=== PATIENT | male | born 1945 | race Caucasian/White ===

== ENCOUNTER → 2016-05-27 | Outpatient (CLI) | payer OTHER, MEDICARE ==
[2016-05-27 09:51] LABS: BASO % 0.4 % (0.0-1.0); EOS # 0.3 K/mm3 (0.0-0.50); EOS % 6.4 % (0.0-3.0); LARGE UNSTAINED CELL # 0.1 K/mm3 (0.0-0.4); LARGE UNSTAINED CELL % 1.7 % (0.0-4.0); LYMPH # 0.9 K/mm3 (1.5-4.5); MEAN CORPUSCULAR HEMOGLOBIN 32.5 pg (27.0-33.0); MEAN CORPUSCULAR HGB CONC 33.6 g/dl (32.0-36.5); MEAN CORPUSCULAR VOLUME 96.9 fl (80.0-96.0); MONO # 0.3 K/mm3 (0.0-0.8); MONO % 4.9 % (0.0-5.0); NEUTROPHILS # 3.8 K/mm3 (1.8-7.7); NEUTROPHILS % 70.6 % (36.0-66.0); PLATELET COUNT, AUTOMATED 162 k/mm3 (150-450); RED CELL DISTRIBUTION WIDTH 11.8 % (11.5-14.5); WHITE BLOOD COUNT 5.3 K/mm3 (4.0-10.0)
[2016-05-27 12:13] LABS: ALBUMIN 3.9 GM/DL (3.2-5.2); ALKALINE PHOSPHATASE 93 U/L (45-117); ALT/SGPT 22 U/L (12-78); ANION GAP 3 MEQ/L (8-16); AST/SGOT 18 U/L (15-37); BILIRUBIN,TOTAL 0.7 MG/DL (0.2-1.0); BLOOD UREA NITROGEN 20 MG/DL (7-18); CALCIUM LEVEL 8.9 MG/DL (8.8-10.2); CARBON DIOXIDE LEVEL 33 MEQ/L (21-32); CHLORIDE LEVEL 104 MEQ/L (98-107); CHOLESTEROL LEVEL 172 MG/DL (<200); CREATININE FOR GFR 1.06 MG/DL (0.70-1.30); GLOMERULAR FILTRATION RATE > 60.0 (>49); GLUCOSE, FASTING 126 MG/DL (80-110); POTASSIUM SERUM 4.7 MEQ/L (3.5-5.1); SODIUM LEVEL 140 MEQ/L (136-145); TOTAL PROTEIN 6.9 GM/DL (6.4-8.2); TRIGLYCERIDES LEVEL 81 MG/DL (<150)
== END ==
LOC: M WUC 08:06
PROVIDERS: ATTEND Family Medicine
DX: E11.9 Type 2 diabetes mellitus without complications (principal); N40.0 Benign prostatic hyperplasia without lower urinary tract symptoms
CPT/HCPCS: 36415; 80053; 80061; 82043; 85025; G0103

== ENCOUNTER → 2016-06-02 | Outpatient (CLI) | payer OTHER, MEDICARE | LOC: M WUC 17:13 | PROVIDERS: ATTEND Family Medicine | DX: E11.9 Type 2 diabetes mellitus without complications (principal) ==

== ENCOUNTER 2016-12-04 14:14 | Emergency (ER) | payer OTHER, MEDICARE ==
[~2016-12-04] VITALS: Ht 177.8 cm; Wt 75.9 kg
[2016-12-04] MEDS ORDERED: GABA-283 PO (14:39)
[2016-12-04] MEDS ORDERED: METF500T13 PO (14:39)
[2016-12-04] MEDS ORDERED: ATOR80TA59 PO (14:39)
[2016-12-04] MEDS ORDERED: FINA5TAB2 PO (14:39)
[2016-12-04] MEDS ORDERED: GLYB5TA PO (14:39)
[2016-12-04] MEDS ORDERED: ASPI81TA85 PO (14:39)
[2016-12-04] MEDS ORDERED: FLOM5CAP PO (14:39)
[2016-12-04] MEDS ORDERED: LISI-542 PO (14:39)
[2016-12-04 15:00] LABS: BASO % 0.5 % (0.0-1.0); EOS # 0.3 10^3/uL (0.0-0.50); EOS % 3.7 % (0.0-3.0); IMMATURE GRANULOCYTE % 0.3 % (0-0); LYMPH # 1.1 10^3/uL (1.5-4.5); LYMPH % 15.4 % (24.0-44.0); MEAN CORPUSCULAR HEMOGLOBIN 32.8 pg (27.0-33.0); MEAN CORPUSCULAR HGB CONC 34.4 g/dl (32.0-36.5); MEAN CORPUSCULAR VOLUME 95.3 fl (80.0-96.0); MONO # 0.4 10^3/uL (0.0-0.8); MONO % 5.6 % (0.0-5.0); NEUTROPHILS # 5.4 10^3/uL (1.8-7.7); NEUTROPHILS % 74.5 % (36.0-66.0); PLATELET COUNT, AUTOMATED 169 10^3/uL (150-450); RED CELL DISTRIBUTION WIDTH 11.8 % (11.5-14.5); WHITE BLOOD COUNT 7.3 10^3/uL (4.0-10.0)
[2016-12-04 15:27] LABS: ANION GAP 6 MEQ/L (8-16); BLOOD UREA NITROGEN 19 MG/DL (7-18); CALCIUM LEVEL 9.2 MG/DL (8.8-10.2); CARBON DIOXIDE LEVEL 30 MEQ/L (21-32); CHLORIDE LEVEL 105 MEQ/L (98-107); CREATININE FOR GFR 1.33 MG/DL (0.70-1.30); GLOMERULAR FILTRATION RATE 56.8 (>49); GLUCOSE, FASTING 121 MG/DL (80-110); POTASSIUM SERUM 4.4 MEQ/L (3.5-5.1); SODIUM LEVEL 141 MEQ/L (136-145)
--- NOTE | 2016-12-04 15:32 | REP ---
PA and lateral chest: Comparison is 07/31/2010. The lung [place] are clear. The cardiac size is normal The [place], mediastinum, and bony thorax are unremarkable. Impression: Negative PA and lateral chest. There is no interval change. Signed by Robert Klein MD 12/04/2016 03:23 P
[2016-12-04] MEDS ORDERED: ASPIRIN 81 MG CHEW TABLET As Ordered ONE (15:49)
[2016-12-04] MEDS ORDERED: ASPIRIN 81 MG CHEW TABLET PO ONE (16:00)
[2016-12-04] MEDS ORDERED: ASPIRIN 325 MG TAB PO ONE (16:00)
[2016-12-04] MEDS ORDERED: ISOVUE-370 76% 100ML VIAL (Q9967) As Ordered ONE (16:14)
--- NOTE | 2016-12-04 17:04 | REP ---
CT of the chest with IV contrast, CT pulmonary angiography: There are no emboli in the pulmonary trunk or central pulmonary arteries. There are no emboli in the pulmonary artery lobe or segment branches. There are no infiltrates or effusions. No masses. There is no mediastinal or hilar adenopathy. No axillary adenopathy. The thoracic aorta is. Cardiac size is normal. There is no pericardial effusion. The visualized upper abdominal contents are unremarkable. Impression: There are no pulmonary emboli. Otherwise, negative CT study of the chest. Signed by Robert Klein MD 12/04/2016 04:55 P
[2016-12-04 19:16] VITALS: BP 160/88
--- NOTE | 2016-12-05 08:07 | ECGEPIP ---
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
--- NOTE | 2016-12-05 08:10 | ECGEPIP ---
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
== END 2016-12-04 19:27 | disposition home or self-care (01) ==
LOC: M ED 14:14
DX: R06.02 Shortness of breath (principal); I20.9 Angina pectoris, unspecified; R94.31 Abnormal electrocardiogram [ECG] [EKG]; E11.9 Type 2 diabetes mellitus without complications; I10 Essential (primary) hypertension; E78.5 Hyperlipidemia, unspecified; N40.0 Benign prostatic hyperplasia without lower urinary tract symptoms; Z83.49 Family history of other endocrine, nutritional and metabolic diseases; Z79.82 Long term (current) use of aspirin; Z79.84 Long term (current) use of oral hypoglycemic drugs; Z79.899 Other long term (current) drug therapy
CPT/HCPCS: 36415; 71020; 71275; 80048; 82550; 82553; 83880; 85025; 93005; 93041; 94760; 99285; Q9967

== ENCOUNTER → 2016-12-06 | Outpatient (CLI) | payer OTHER, MEDICARE ==
[~2016-12-06] MED LIST: ASPI81TA85 PO; ATOR80TA59 PO; FINA5TAB2 PO; FLOM5CAP PO; GABA-283 PO; GLYB5TA PO; LISI-542 PO; METF500T13 PO
== END ==
LOC: M WUC 13:23
PROVIDERS: ATTEND Family Medicine
DX: E11.9 Type 2 diabetes mellitus without complications (principal); E55.9 Vitamin D deficiency, unspecified; F39 Unspecified mood [affective] disorder

== ENCOUNTER → 2017-05-09 | Outpatient (CLI) | payer OTHER, MEDICARE ==
[2017-05-09 13:37] LABS: BASO % 0.5 % (0.0-1.0); EOS # 0.2 10^3/uL (0.0-0.50); HEMATOCRIT 41.6 % (42.0-52.0); HEMOGLOBIN 14.2 g/dl (14.0-18.0); IMMATURE GRANULOCYTE % 0.4 % (0-3.0); LYMPH % 17.3 % (24.0-44.0); MEAN CORPUSCULAR HEMOGLOBIN 32.9 pg (27.0-33.0); MEAN CORPUSCULAR HGB CONC 34.1 g/dl (32.0-36.5); MEAN CORPUSCULAR VOLUME 96.5 fl (80.0-96.0); MONO # 0.4 10^3/uL (0.0-0.8); MONO % 6.6 % (0.0-5.0); NEUTROPHILS # 3.9 10^3/uL (1.8-7.7); NEUTROPHILS % 71.2 % (36.0-66.0); PLATELET COUNT, AUTOMATED 171 10^3/uL (150-450); RED BLOOD COUNT 4.31 10^6/uL (4.30-6.10); RED CELL DISTRIBUTION WIDTH 11.8 % (11.5-14.5); WHITE BLOOD COUNT 5.5 10^3/uL (4.0-10.0)
[2017-05-09 14:03] LABS: ALBUMIN 3.9 GM/DL (3.2-5.2); ALBUMIN/GLOBULIN RATIO 1.26 (1.00-1.93); ALKALINE PHOSPHATASE 89 U/L (45-117); ALT/SGPT 22 U/L (12-78); ANION GAP 6 MEQ/L (8-16); AST/SGOT 20 U/L (7-37); BILIRUBIN,TOTAL 0.8 MG/DL (0.2-1.0); BLOOD UREA NITROGEN 20 MG/DL (7-18); CARBON DIOXIDE LEVEL 30 MEQ/L (21-32); CHLORIDE LEVEL 104 MEQ/L (98-107); CHOLESTEROL LEVEL 188 MG/DL (<200); CHOLESTEROL RISK RATIO 3.836 (<5); CREATININE FOR GFR 1.13 MG/DL (0.70-1.30); GLOMERULAR FILTRATION RATE > 60.0 (>42); GLUCOSE, FASTING 113 MG/DL (70-100); HDL CHOLESTEROL 49 MG/DL (>40); LDL CHOLESTEROL 126.4 MG/DL (<100); NON-HDL-C 139 MG/DL; POTASSIUM SERUM 4.4 MEQ/L (3.5-5.1); SODIUM LEVEL 140 MEQ/L (136-145); TRIGLYCERIDES LEVEL 63 MG/DL (<150)
[2017-05-09 14:11] LABS: CREATININE, URINE 81.5 MG/DL; MALB URINE SIEMENS 58.9 MG/L; MAU/CREAT RATIO 72.2 MCG/MG (0.0-30.0)
[2017-05-09 14:44] LABS: HEPATITIS C VIRUS ABY INDEX < 0.0 INDEX (<0.8)
== END ==
LOC: M WUC 09:21
DX: E11.9 Type 2 diabetes mellitus without complications (principal); Z11.59 Encounter for screening for other viral diseases
CPT/HCPCS: 80053

== ENCOUNTER → 2017-09-18 | Outpatient (CLI) | payer OTHER, MEDICARE | LOC: M WUC 16:04 | DX: S20.211A Contusion of right front wall of thorax, initial encounter (principal); W18.30XA Fall on same level, unspecified, initial encounter; Y92.009 Unspecified place in unspecified non-institutional (private) residence as the place of occurrence of the external cause ==

== ENCOUNTER → 2017-11-09 | Outpatient (CLI) | payer OTHER, MEDICARE ==
[2017-11-09 15:38] LABS: ESTIMATED AVERAGE GLUCOSE 157 MG/DL (60-110); HEMOGLOBIN A1c 7.1 %
== END ==
LOC: M WUC 09:27
DX: E11.69 Type 2 diabetes mellitus with other specified complication (principal)
CPT/HCPCS: 83036

== ENCOUNTER → 2017-12-19 | Outpatient (REF) | payer OTHER, MEDICARE ==
[2017-12-19 15:04] LABS: BASO % 0.5 % (0.0-1.0); EOS # 0.2 10^3/uL (0.0-0.50); EOS % 3.7 % (0.0-3.0); HEMATOCRIT 44.3 % (42.0-52.0); IMMATURE GRANULOCYTE % 0.3 % (0-3.0); LYMPH # 0.9 10^3/uL (1.5-4.5); LYMPH % 14.4 % (24.0-44.0); MEAN CORPUSCULAR HEMOGLOBIN 33.2 pg (27.0-33.0); MEAN CORPUSCULAR HGB CONC 33.9 g/dl (32.0-36.5); MONO # 0.3 10^3/uL (0.0-0.8); MONO % 4.9 % (0.0-5.0); NEUTROPHILS # 4.5 10^3/uL (1.8-7.7); NEUTROPHILS % 76.2 % (36.0-66.0); PLATELET COUNT, AUTOMATED 183 10^3/uL (150-450); RED BLOOD COUNT 4.52 10^6/uL (4.30-6.10); RED CELL DISTRIBUTION WIDTH 11.9 % (11.5-14.5); WHITE BLOOD COUNT 5.9 10^3/uL (4.0-10.0)
[2017-12-19 15:28] LABS: ALBUMIN 4.3 GM/DL (3.2-5.2); ALBUMIN/GLOBULIN RATIO 1.34 (1.00-1.93); ALKALINE PHOSPHATASE 100 U/L (45-117); ALT/SGPT 28 U/L (12-78); ANION GAP 5 MEQ/L (8-16); AST/SGOT 23 U/L (7-37); BILIRUBIN,TOTAL 0.6 MG/DL (0.2-1.0); BLOOD UREA NITROGEN 23 MG/DL (7-18); CALCIUM LEVEL 9.7 MG/DL (8.8-10.2); CARBON DIOXIDE LEVEL 30 MEQ/L (21-32); CHLORIDE LEVEL 102 MEQ/L (98-107); CREATININE FOR GFR 1.15 MG/DL (0.70-1.30); FREE T4 1.04 NG/DL (0.76-1.46); GLOMERULAR FILTRATION RATE > 60.0 (>42); GLUCOSE, FASTING 185 MG/DL (70-100); POTASSIUM SERUM 4.8 MEQ/L (3.5-5.1); RHEUMATOID FACTOR QUANT < 10.0 IU/ML (<15.0); SODIUM LEVEL 137 MEQ/L (136-145); THYROID STIMULATING HORMONE 0.922 uIU/ML (0.358-3.740); TOTAL PROTEIN 7.5 GM/DL (6.4-8.2)
[2017-12-19 15:30] LABS: FOLATE > 24.0 NG/ML
[2017-12-19 15:39] LABS: ERYTHROCYTE SEDIMENTATION RATE 5 mm/hr (0-20)
[2017-12-22 08:06] LABS: ANTI DOUBLE STRAND-DNA AB 1 IU/mL (0-9); ANTINUCLEAR ANTIBODIES DIRECT Positive (Negative); SJOGREN'S ANTI SS-A <0.2 AI (0.0-0.9); SJOGREN'S ANTI SS-B <0.2 AI (0.0-0.9); SMITH ANTIBODIES <0.2 AI (0.0-0.9); VITAMIN B1 LEVEL WHOLE BLOOD 175.9 nmol/L (66.5-200.0); VITAMIN B6,PYRIDOXAL PHOSPHATE 16.7 ug/L (5.3-46.7); VITAMIN E(ALPHA TOCOPHEROL) 11.2 mg/L (9.0-29.0); VITAMIN E(GAMMA TOCOPHEROL) 0.8 mg/L (0.5-4.9)
== END ==
LOC: M LABNEURO 10:22
DX: E07.9 Disorder of thyroid, unspecified (principal); F03.90 Unspecified dementia, unspecified severity, without behavioral disturbance, psychotic disturbance, mood disturbance, and anxiety

== ENCOUNTER → 2018-01-04 | Outpatient (CLI) | payer OTHER, MEDICARE ==
[2018-01-04 13:45] LABS: ESTIMATED AVERAGE GLUCOSE 154 MG/DL (60-110)
[2018-01-04 13:55] LABS: ALBUMIN 3.8 GM/DL (3.2-5.2); ALBUMIN/GLOBULIN RATIO 1.23 (1.00-1.93); ALKALINE PHOSPHATASE 92 U/L (45-117); ALT/SGPT 25 U/L (12-78); ANION GAP 5 MEQ/L (8-16); AST/SGOT 19 U/L (7-37); BILIRUBIN,TOTAL 0.7 MG/DL (0.2-1.0); BLOOD UREA NITROGEN 19 MG/DL (7-18); CARBON DIOXIDE LEVEL 30 MEQ/L (21-32); CHLORIDE LEVEL 104 MEQ/L (98-107); CREATININE FOR GFR 1.11 MG/DL (0.70-1.30); GLOMERULAR FILTRATION RATE > 60.0 (>42); GLUCOSE, FASTING 119 MG/DL (70-100); POTASSIUM SERUM 4.7 MEQ/L (3.5-5.1); SODIUM LEVEL 139 MEQ/L (136-145); TOTAL PROTEIN 6.9 GM/DL (6.4-8.2)
== END ==
LOC: M WUC 10:43
DX: E11.69 Type 2 diabetes mellitus with other specified complication (principal)
CPT/HCPCS: 80053

== ENCOUNTER → 2018-03-03 | Outpatient (CLI) | payer OTHER, MEDICARE ==
[~2018-03-03] MED LIST changes: +FLOM0.4C39 PO; -FLOM5CAP PO; -GABA-283 PO; +GABA-845 PO
[2018-03-03 14:59] LABS: HEMOGLOBIN A1c 7.4 %
== END ==
LOC: M WUC 08:56
PROVIDERS: ATTEND Family Medicine
DX: E11.69 Type 2 diabetes mellitus with other specified complication (principal)

== ENCOUNTER → 2018-04-03 | Outpatient (CLI) | payer OTHER, MEDICARE ==
--- NOTE | 2018-04-03 18:38 | REP ---
KUB, ONE VIEW: HISTORY: Back pain. A small amount of air is present in the intestine. There are no air fluid levels or dilated loops of intestine. There is no pneumoperitoneum. There is no definite nephrocalcinosis. Degenerative change is present in the lumbar spine and hips. IMPRESSION:Nonspecific bowel gas pattern. Electronically Signed by Ruiz Palomino MD 04/03/2018 06:57 P
[2018-04-03 20:03] LABS: APPEARANCE, URINE CLEAR (CLEAR); BACTERIA, URINE AUTO NEGATIVE (NEGATIVE); BILIRUBIN, URINE AUTO NEGATIVE (NEGATIVE); BLOOD, URINE BLOOD NEGATIVE (NEGATIVE); COLOR, URINE YELLOW (YELLOW); GLUCOSE, URINE (UA) AUTO 2+ mg/dL (NEGATIVE); KETONE, URINE AUTO NEGATIVE (NEGATIVE); LEUKOCYTE ESTERASE, URINE AUTO NEGATIVE (NEGATIVE); NITRITE, URINE AUTO NEGATIVE (NEGATIVE); PROTEIN, URINE AUTO 1+ mg/dL (NEGATIVE); RBC, URINE AUTO 0 /HPF (0-3); SPECIFIC GRAVITY URINE AUTO 1.016 (1.002-1.035); SQUAMOUS EPITHELIAL CELL UR AU 0 /HPF (0-6); UROBILINOGEN, URINE AUTO 0.2 mg/dL (0.0-2.0); WBC, URINE AUTO 1 /HPF (0-3)
== END ==
LOC: M WUC 17:09
PROVIDERS: ATTEND Physician Assistant
DX: M54.5 Low back pain (principal)

== ENCOUNTER → 2018-04-04 | Outpatient (CLI) | payer MEDICARE, OTHER ==
[2018-04-04 10:46] LABS: BASO % 0.5 % (0.0-1.0); EOS # 0.3 10^3/uL (0.0-0.50); EOS % 4.6 % (0.0-3.0); HEMATOCRIT 46.3 % (42.0-52.0); HEMOGLOBIN 15.6 g/dl (13.5-17.5); LYMPH # 0.9 10^3/uL (1.5-4.5); LYMPH % 16.4 % (24.0-44.0); MEAN CORPUSCULAR HEMOGLOBIN 32.8 pg (27.0-33.0); MEAN CORPUSCULAR HGB CONC 33.7 g/dl (32.0-36.5); MEAN CORPUSCULAR VOLUME 97.3 fl (80.0-96.0); MONO # 0.3 10^3/uL (0.0-0.8); MONO % 5.3 % (0.0-5.0); NEUTROPHILS % 72.8 % (36.0-66.0); PLATELET COUNT, AUTOMATED 198 10^3/uL (150-450); RED BLOOD COUNT 4.76 10^6/uL (4.30-6.10); WHITE BLOOD COUNT 5.5 10^3/uL (4.0-10.0)
[2018-04-04 11:11] LABS: BLOOD UREA NITROGEN 16 MG/DL (7-18); CALCIUM LEVEL 9.2 MG/DL (8.8-10.2); CARBON DIOXIDE LEVEL 30 MEQ/L (21-32); CHLORIDE LEVEL 103 MEQ/L (98-107); CREATININE FOR GFR 1.08 MG/DL (0.70-1.30); GLOMERULAR FILTRATION RATE > 60.0 (>42); GLUCOSE, FASTING 134 MG/DL (70-100); POTASSIUM SERUM 4.6 MEQ/L (3.5-5.1); SODIUM LEVEL 139 MEQ/L (136-145)
--- NOTE | 2018-04-04 11:18 | REP ---
CT ABDOMEN AND PELVIS WITHOUT CONTRAST: 04/04/2018. Clinical history: Low back pain. Comparison: KUB 04/03/2018. Findings: Noncontrast protocol was followed. CT abdomen: Lung bases are clear. Heart is not enlarged. There is no pericardial thickening or effusion and no hiatal hernia. Liver and spleen are not enlarged and show no focal lesion. Gallbladder shows no calcified stone or mass. Pancreas is without mass, ductal dilatation, calcification, fluid collection or adjacent adenopathy. Stomach is collapsed. Colon shows stool and gas scattered without signs of colitis or diverticulitis. Small bowel loops grossly unremarkable. The aorta has atherosclerotic calcifications without aneurysm. Adrenal glands are symmetric and normal. There are subtle hyperdensities in several pyramids in the right kidney without well formed stones. This may be early calcification in pyramids. Similar finding in the inferior pole on the left and the upper pole. There is one 1-2 mm stone in an upper pole pyramid on the left side. I see no hydronephrosis, cyst or solid mass. No perinephric fluid collection. The right and left ureters show normal course to the bladder without dilatation or stone. Bone show degenerative disc changes throughout the lumbar spine with superior endplate depression at L2 with endplate degenerative changes, likely chronic. The posterior rib articulations are grossly intact. CT pelvis: The sacrum, pelvis, hips, SI joints and pubic symphysis show some degenerative change without destructive lesion or fracture. There is spondylolysis at L5 with a couple of millimeters of spondylolisthesis of L5 on S1. Bladder is only partially filled. It has some wall thickening. An enlarged prostate indents its base. There is no distal ureteral dilatation or stone in the ureters or bladder. Distal left colon and sigmoid with some scattered diverticula with no signs of diverticulitis or colitis. The cecum was intact. There is a normal appendix seen. Small bowel loops in the pelvis are unremarkable. No ventral or inguinal hernia nor pathologic sized inguinal adenopathy. Impression: 1. No hydronephrosis, hydroureter, or mass involving the kidneys or ureters. 2. Slight hyperdensity in multiple pyramids bilaterally may reflect hyperdense urine in pyramids or early stone formation. There is only one definite stone in the 1-2 mm range in an upper pole pyramid on the left. 3. Superior endplate depression of L2 with sclerosis, findings suggest a possible chronic degenerative change. There are other lesser endplate degenerative changes in the lower thoracic spine. 4. 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 5. Enlarged prostate. No other significant finding in the abdomen or pelvis. Electronically Signed by Teo Quinones MD 04/04/2018 05:48 P
== END ==
LOC: M RAD 09:31
PROVIDERS: ATTEND Physician Assistant
DX: M54.5 Low back pain (principal)

== ENCOUNTER → 2018-04-06 | Outpatient (CLI) | payer MEDICARE, OTHER ==
[2018-04-06 12:49] LABS: BASO % 0.5 % (0.0-1.0); EOS # 0.3 10^3/uL (0.0-0.50); EOS % 4.6 % (0.0-3.0); HEMATOCRIT 42.1 % (42.0-52.0); HEMOGLOBIN 14.3 g/dl (13.5-17.5); LYMPH # 0.9 10^3/uL (1.5-4.5); LYMPH % 15.9 % (24.0-44.0); MEAN CORPUSCULAR HEMOGLOBIN 32.9 pg (27.0-33.0); MONO # 0.4 10^3/uL (0.0-0.8); MONO % 6.6 % (0.0-5.0); NEUTROPHILS % 71.9 % (36.0-66.0); PLATELET COUNT, AUTOMATED 187 10^3/uL (150-450); RED BLOOD COUNT 4.34 10^6/uL (4.30-6.10); WHITE BLOOD COUNT 5.6 10^3/uL (4.0-10.0)
[2018-04-06 12:52] LABS: ALBUMIN 3.8 GM/DL (3.2-5.2); ALT/SGPT 25 U/L (12-78); BILIRUBIN,TOTAL 0.8 MG/DL (0.2-1.0); BLOOD UREA NITROGEN 18 MG/DL (7-18); CALCIUM LEVEL 8.8 MG/DL (8.8-10.2); CARBON DIOXIDE LEVEL 29 MEQ/L (21-32); CHLORIDE LEVEL 103 MEQ/L (98-107); CHOLESTEROL LEVEL 188 MG/DL (<200); CHOLESTEROL RISK RATIO 4.476 (<5); CREATININE FOR GFR 1.16 MG/DL (0.70-1.30); GLOMERULAR FILTRATION RATE > 60.0 (>42); GLUCOSE, FASTING 130 MG/DL (70-100); HDL CHOLESTEROL 42 MG/DL (>40); LDL CHOLESTEROL 125 MG/DL (<100); NON-HDL-C 146 MG/DL; POTASSIUM SERUM 4.9 MEQ/L (3.5-5.1); SODIUM LEVEL 138 MEQ/L (136-145); TRIGLYCERIDES LEVEL 103 MG/DL (<150)
[2018-04-06 13:32] LABS: MAU/CREAT RATIO 135.1 MCG/MG (0.0-30.0)
[2018-04-06 13:43] LABS: HEMOGLOBIN A1c 7.6 %
== END ==
LOC: M WUC 09:58
PROVIDERS: ATTEND Family Medicine
DX: E11.69 Type 2 diabetes mellitus with other specified complication (principal)

== ENCOUNTER → 2018-07-02 | Outpatient (CLI) | payer MEDICARE, OTHER ==
--- NOTE | 2018-07-03 07:46 | REP ---
REASON: Chest contusion on the left. COMPARISON: Frontal view of the chest and right rib series of 09/18/2017. The accompanying frontal view of the chest is unchanged and within normal limits. There is no evidence of a right rib fracture. The right ribs are unchanged. There is a fracture involving the left anterior 9th of 10th rib. Other subtle fractures could be obscured. IMPRESSION: Left rib fractures as described above. Electronically Signed by Hansel Aguilar DO 07/03/2018 08:40 A
== END ==
LOC: M WUC 15:18
PROVIDERS: ATTEND Physician Assistant
DX: S22.41XA Multiple fractures of ribs, right side, initial encounter for closed fracture (principal); Y92.9 Unspecified place or not applicable; Y93.9 Activity, unspecified

== ENCOUNTER → 2018-07-05 | Outpatient (CLI) | payer MEDICARE, OTHER ==
[2018-07-05 12:03] LABS: BASO % 0.3 % (0.0-1.0); EOS # 0.1 10^3/uL (0.0-0.50); EOS % 0.8 % (0.0-3.0); HEMATOCRIT 41.8 % (42.0-52.0); HEMOGLOBIN 13.9 g/dl (13.5-17.5); LYMPH # 1.3 10^3/uL (1.5-4.5); LYMPH % 14.1 % (24.0-44.0); MEAN CORPUSCULAR HEMOGLOBIN 32.2 pg (27.0-33.0); MEAN CORPUSCULAR HGB CONC 33.3 g/dl (32.0-36.5); MEAN CORPUSCULAR VOLUME 96.8 fl (80.0-96.0); MONO # 0.7 10^3/uL (0.0-0.8); MONO % 7.4 % (0.0-5.0); PLATELET COUNT, AUTOMATED 196 10^3/uL (150-450); RED BLOOD COUNT 4.32 10^6/uL (4.30-6.10); WHITE BLOOD COUNT 9.1 10^3/uL (4.0-10.0)
[2018-07-05 12:27] LABS: ALBUMIN 3.8 GM/DL (3.2-5.2); BILIRUBIN,TOTAL 0.7 MG/DL (0.2-1.0); CHOLESTEROL RISK RATIO 2.32 (<5); CREATININE FOR GFR 1.28 MG/DL (0.70-1.30); POTASSIUM SERUM 4.7 MEQ/L (3.5-5.1); TOTAL PROTEIN 7.5 GM/DL (6.4-8.2)
[2018-07-05 13:30] LABS: MAU/CREAT RATIO 273.9 MCG/MG (0.0-30.0)
== END ==
LOC: M WUC 09:26
PROVIDERS: ATTEND Family Medicine
DX: E11.69 Type 2 diabetes mellitus with other specified complication (principal)

== ENCOUNTER → 2018-08-24 | Outpatient (CLI) | payer MEDICARE, OTHER ==
[2018-08-24 12:42] LABS: HEMATOCRIT 41.6 % (42.0-52.0); HEMOGLOBIN 13.8 g/dl (13.5-17.5); MEAN CORPUSCULAR HEMOGLOBIN 32.2 pg (27.0-33.0); MEAN CORPUSCULAR HGB CONC 33.2 g/dl (32.0-36.5); PLATELET COUNT, AUTOMATED 174 10^3/uL (150-450); RED BLOOD COUNT 4.29 10^6/uL (4.30-6.10); WHITE BLOOD COUNT 6.1 10^3/uL (4.0-10.0)
[2018-08-24 13:11] LABS: ALT/SGPT 34 U/L (12-78); BILIRUBIN,DIRECT 0.2 MG/DL (0.0-0.2); BILIRUBIN,TOTAL 0.8 MG/DL (0.2-1.0); BLOOD UREA NITROGEN 23 MG/DL (7-18); CALCIUM LEVEL 8.8 MG/DL (8.8-10.2); CARBON DIOXIDE LEVEL 27 MEQ/L (21-32); CHLORIDE LEVEL 106 MEQ/L (98-107); CREATININE FOR GFR 1.13 MG/DL (0.70-1.30); GLOMERULAR FILTRATION RATE > 60.0 (>42); GLUCOSE, FASTING 112 MG/DL (70-100); POTASSIUM SERUM 4.5 MEQ/L (3.5-5.1); SODIUM LEVEL 140 MEQ/L (136-145); TOTAL PROTEIN 7.1 GM/DL (6.4-8.2)
== END ==
LOC: M WUC 09:53
PROVIDERS: ATTEND Podiatrist Foot & Ankle Surgery
DX: Z51.81 Encounter for therapeutic drug level monitoring (principal); Z79.899 Other long term (current) drug therapy; B35.1 Tinea unguium

== ENCOUNTER → 2018-10-23 | Outpatient (CLI) | payer MEDICARE, OTHER ==
[2018-10-23 12:47] LABS: HEMATOCRIT 41.3 % (42.0-52.0); HEMOGLOBIN 13.9 g/dl (13.5-17.5); MEAN CORPUSCULAR HEMOGLOBIN 32.5 pg (27.0-33.0); MEAN CORPUSCULAR HGB CONC 33.7 g/dl (32.0-36.5); MEAN CORPUSCULAR VOLUME 96.5 fl (80.0-96.0); PLATELET COUNT, AUTOMATED 169 10^3/uL (150-450); RED BLOOD COUNT 4.28 10^6/uL (4.30-6.10); WHITE BLOOD COUNT 4.6 10^3/uL (4.0-10.0)
[2018-10-23 13:00] LABS: ALBUMIN 3.9 GM/DL (3.2-5.2); ALT/SGPT 31 U/L (12-78); BILIRUBIN,DIRECT 0.2 MG/DL (0.0-0.2); BILIRUBIN,TOTAL 0.6 MG/DL (0.2-1.0); BLOOD UREA NITROGEN 16 MG/DL (7-18); CALCIUM LEVEL 9.3 MG/DL (8.8-10.2); CARBON DIOXIDE LEVEL 32 MEQ/L (21-32); CHLORIDE LEVEL 103 MEQ/L (98-107); CREATININE FOR GFR 1.19 MG/DL (0.70-1.30); GLOMERULAR FILTRATION RATE > 60.0 (>42); GLUCOSE, FASTING 169 MG/DL (70-100); PHOSPHORUS LEVEL 3.1 MG/DL (2.5-4.9); POTASSIUM SERUM 4.2 MEQ/L (3.5-5.1); SODIUM LEVEL 139 MEQ/L (136-145); TOTAL PROTEIN 7.1 GM/DL (6.4-8.2)
== END ==
LOC: M WUC 10:06
PROVIDERS: ATTEND Podiatrist Foot & Ankle Surgery
DX: B35.1 Tinea unguium (principal); Z79.899 Other long term (current) drug therapy

== ENCOUNTER → 2018-11-24 | Outpatient (CLI) | payer OTHER ==
[2018-11-24 12:29] LABS: HEMOGLOBIN A1c 6.8 %
== END ==
LOC: M WUC 09:48
PROVIDERS: ATTEND Family Medicine
DX: E11.69 Type 2 diabetes mellitus with other specified complication (principal)

== ENCOUNTER → 2019-02-09 | Outpatient (REF) | payer OTHER | LOC: M LAB REF 14:16 | PROVIDERS: ATTEND Physician Assistant | DX: R11.2 Nausea with vomiting, unspecified (principal); R10.32 Left lower quadrant pain ==

== ENCOUNTER → 2019-02-09 | Outpatient (CLI) | payer OTHER ==
--- NOTE | 2019-02-09 12:54 | REP ---
Clinical: Left lower quadrant pain with nausea and vomiting. Technique: Two supine views of the abdomen and pelvis. Comparison: 04/03/2018 Findings: Bowel gas pattern is nonspecific. No organomegaly. Phleboliths noted in the pelvis. There is a 2 mm rounded calcification overlying the left psoas muscle which is nonspecific although ureteral calculus cannot be excluded and should be correlated with the patient's symptoms. Skeletal structures demonstrate age-related degenerative changes. Impression: 1. Nonspecific abdominal radiographs. 2. A 2 mm calcification overlies the mid left psoas muscle which is nonspecific but ureteral calculus cannot be excluded and should be correlated with the patient's symptoms. Electronically Signed by Darek Biswas MD 02/09/2019 12:45 P
[2019-02-09 13:39] LABS: BASO % 0.3 % (0.0-1.0); EOS # 0.1 10^3/uL (0.0-0.5); EOS % 0.9 % (0.0-3.0); HEMATOCRIT 44.3 % (42.0-52.0); HEMOGLOBIN 14.5 g/dl (13.5-17.5); LYMPH # 0.7 10^3/uL (1.5-5.0); MEAN CORPUSCULAR HEMOGLOBIN 32.4 pg (27.0-33.0); MEAN CORPUSCULAR HGB CONC 32.7 g/dl (32.0-36.5); MEAN CORPUSCULAR VOLUME 99.1 fl (80.0-96.0); MONO # 0.3 10^3/uL (0.0-0.8); MONO % 2.7 % (0.0-5.0); NEUTROPHILS # 10.4 10^3/uL (1.5-8.5); NEUTROPHILS % 89.5 % (36.0-66.0); PLATELET COUNT, AUTOMATED 202 10^3/uL (150-450); RED BLOOD COUNT 4.47 10^6/uL (4.30-6.10); WHITE BLOOD COUNT 11.7 10^3/uL (4.0-10.0)
[2019-02-09 14:14] LABS: ALBUMIN 4.1 GM/DL (3.2-5.2); BILIRUBIN,TOTAL 0.7 MG/DL (0.2-1.0); CALCIUM LEVEL 9.7 MG/DL (8.8-10.2); CREATININE FOR GFR 1.29 MG/DL (0.70-1.30); GLOMERULAR FILTRATION RATE 58.5 (>42); POTASSIUM SERUM 4.6 MEQ/L (3.5-5.1); TOTAL PROTEIN 7.5 GM/DL (6.4-8.2)
== END ==
LOC: M WUC 12:26
PROVIDERS: ATTEND Physician Assistant
DX: R93.5 Abnormal findings on diagnostic imaging of other abdominal regions, including retroperitoneum (principal); R11.2 Nausea with vomiting, unspecified; R10.32 Left lower quadrant pain

== ENCOUNTER 2019-10-19 16:54 | Emergency (ER) | payer OTHER ==
[~2019-10-19] VITALS: Ht 177.8 cm; Wt 76.5 kg
[~2019-10-19 16:54] MED LIST changes: -ASPI81TA85 PO; +ASPI81TA86 PO
[2019-10-19] MEDS ORDERED: TROS20TA3 (17:17)
[2019-10-19] MEDS ORDERED: BOSU (17:17)
[2019-10-19] MEDS ORDERED: NS 1,000 ML IV ONE (18:00)
[2019-10-19 18:55] LABS: BASO % 0.3 % (0.0-1.0); EOS # 0.1 10^3/uL (0.0-0.5); EOS % 0.8 % (0.0-3.0); HEMATOCRIT 25.1 % (42.0-52.0); HEMOGLOBIN 8.6 g/dl (13.5-17.5); LYMPH # 0.8 10^3/uL (1.5-5.0); LYMPH % 5.9 % (24.0-44.0); MEAN CORPUSCULAR HGB CONC 34.3 g/dl (32.0-36.5); MEAN CORPUSCULAR VOLUME 96.2 fl (80.0-96.0); MONO # 1.1 10^3/uL (0.0-0.8); MONO % 8.4 % (0.0-5.0); NEUTROPHILS % 81.7 % (36.0-66.0); PLATELET COUNT, AUTOMATED 317 10^3/uL (150-450); RED BLOOD COUNT 2.61 10^6/uL (4.30-6.10); WHITE BLOOD COUNT 13.4 10^3/uL (4.0-10.0)
[2019-10-19 19:01] LABS: ALBUMIN 3.1 GM/DL (3.2-5.2); BILIRUBIN,DIRECT 0.4 MG/DL (0.0-0.2); BILIRUBIN,TOTAL 1.1 MG/DL (0.2-1.0); CALCIUM LEVEL 8.7 MG/DL (8.8-10.2); CREATININE FOR GFR 1.27 MG/DL (0.70-1.30); GLOMERULAR FILTRATION RATE 59.3 (>42); POTASSIUM SERUM 3.5 MEQ/L (3.5-5.1); TOTAL PROTEIN 6.5 GM/DL (6.4-8.2)
[2019-10-19 19:07] LABS: INR 0.98; PARTIAL THROMBOPLASTIN TIME 30.8 SECONDS (25.0-38.4); PROTHROMBIN TIME 13.2 SECONDS (11.8-14.0)
[2019-10-19] MEDS ORDERED: ISOVUE-370 76% 100ML VIAL As Ordered ONE (19:14)
--- NOTE | 2019-10-19 20:04 | REPVR ---
PROCEDURE INFORMATION: Exam: CT Abdomen And Pelvis With Contrast Exam date and time: 10/19/2019 7:35 PM Age: 74 years old Clinical indication: Abdominal pain; Localized; Left; Prior surgery; Surgery date: <1 month; Surgery type: Prostatectomy; Additional info: Lower abd/pelvic pain S/P prostatectomy TECHNIQUE: Imaging protocol: Computed tomography of the abdomen and pelvis with intravenous contrast. Radiation optimization: All CT scans at this facility use at least one of these dose optimization techniques: automated exposure control; mA and/or kV adjustment per patient size (includes targeted exams where dose is matched to clinical indication); or iterative reconstruction. Contrast material: ISOVUE 370; Contrast volume: 100 ml; Contrast route: INTRAVENOUS (IV); COMPARISON: CT ABD PELVIS W/O CONTRAST 04/04/2018 9:50 AM FINDINGS: Lungs: Bibasilar atelectasis. Liver: There is a diffuse decrease in hepatic parenchymal density, consistent with steatosis. Gallbladder and bile ducts: Normal. No calcified stones. No ductal dilation. Pancreas: Normal. No ductal dilation. Spleen: Normal. No splenomegaly. Adrenals: Normal. No mass. Kidneys and ureters: Mild bilateral hydroureteronephrosis without obstructing calculus or mass. Findings may be related to chronic bladder outlet obstruction. Stomach and bowel: Unremarkable. No obstruction. No mucosal thickening. Appendix: No evidence of appendicitis. Intraperitoneal space: Unremarkable. No free air. No significant fluid collection. Vasculature: The aortoiliac vessels demonstrate mild atherosclerotic calcification. Lymph nodes: Unremarkable. No enlarged lymph nodes. Bladder: Bailey catheter within the urinary bladder. Diffuse thickening of the bladder wall associated with perivesicular inflammation. Findings consistent with cystitis. Reproductive: Status post prostatectomy. Bones/joints: The spine demonstrates mild degenerative changes. Severe central spinal stenosis L3-L4 and L4-L5. Mild retrolisthesis of L4 on L5. There is a grade 1 anterior spondylolisthesis of L5 on S1 secondary to bilateral L5 spondylolysis. Soft tissues: Extensive subcutaneous gas demonstrated in the deep subcutaneous fat coursing along the anterior and anterolateral tao of the abdomen. Clinical correlation to exclude infection including necrotizing fasciitis suggested. IMPRESSION: 1. Extensive subcutaneous gas demonstrated in the deep subcutaneous fat coursing along the anterior and anterolateral tao of the abdomen. Clinical correlation to exclude infection including necrotizing fasciitis suggested. 2. There is a grade 1 anterior spondylolisthesis of L5 on S1 secondary to bilateral L5 spondylolysis. 3. There is a diffuse decrease in hepatic parenchymal density, consistent with steatosis. 4. Bailey catheter within the urinary bladder. Diffuse thickening of the bladder wall associated with perivesicular inflammation. Findings consistent with cystitis. 5. Mild bilateral hydroureteronephrosis without obstructing calculus or mass. Findings may be related to chronic bladder outlet obstruction. 6. Status post prostatectomy. Electronically signed by: Zachariah Holland On 10/19/2019 20:03:51 PM
[2019-10-19] MEDS ORDERED: MORPHINE 4 MG/ML 1ML VIAL/SYRINGE (J2270) IV ONE (20:30)
[2019-10-19 21:56] LABS: HEMATOCRIT 25.1 % (42.0-52.0); HEMOGLOBIN 8.7 g/dl (13.5-17.5)
[2019-10-19 22:24] VITALS: BP 166/83
[2019-10-19] MEDS ORDERED: NORCO 5/325MG TABLET (BULK FOR ED) PO ONE (22:30)
[2019-10-20] MEDS ORDERED: MEMA10TA19 (10:49)
[2019-10-20] MEDS ORDERED: SIMB1SUS (10:49)
[2019-10-20] MEDS ORDERED: ROSU40TA4 (10:49)
[2019-10-20] MEDS ORDERED: OXYB5TAB10 PO (11:55)
--- NOTE | 2019-10-20 14:15 | ED PDOC ---
Post-Departure Follow-Up katrin ramirez faxed formal report of ct abd/p for fu Saundra Sales MD Oct 20, 2019 14:15
[2019-10-20] MEDS ORDERED: COLA100C5 PO (15:40)
== END 2019-10-19 22:46 | disposition home or self-care (01) ==
LOC: M ED 16:54
DX: T83.098A Other mechanical complication of other urinary catheter, initial encounter (principal); R31.9 Hematuria, unspecified; G89.18 Other acute postprocedural pain; R93.5 Abnormal findings on diagnostic imaging of other abdominal regions, including retroperitoneum; M43.16 Spondylolisthesis, lumbar region; K76.89 Other specified diseases of liver; N13.30 Unspecified hydronephrosis; E11.9 Type 2 diabetes mellitus without complications; I10 Essential (primary) hypertension; N40.1 Benign prostatic hyperplasia with lower urinary tract symptoms; Z79.82 Long term (current) use of aspirin; Z79.899 Other long term (current) drug therapy; Z79.84 Long term (current) use of oral hypoglycemic drugs
CPT/HCPCS: 74177; 80048; 80076; 81001; 83605; 85014; 85018; 85025; 85610; 85730; 86850; 86900; 86901; 87040; 87088; 87186; 96361; 96374; 99283; J2270; Q9967

== ENCOUNTER 2019-10-20 10:28 | Emergency (ER) | payer OTHER ==
[~2019-10-20] VITALS: Ht 177.8 cm; Wt 74.7 kg
[~2019-10-20 10:28] MED LIST changes: +BOSU; +TROS20TA3
[2019-10-20] MEDS ORDERED: SIMB1SUS (10:49)
[2019-10-20] MEDS ORDERED: MEMA10TA19 (10:49)
[2019-10-20] MEDS ORDERED: ROSU40TA4 (10:49)
[2019-10-20] MEDS ORDERED: oxyBUTYnin 5 MG TAB PO ONE (11:30)
[2019-10-20 11:32] LABS: BASO # 0.1 10^3/uL (0.0-0.2); BASO % 0.5 % (0.0-1.0); EOS # 0.2 10^3/uL (0.0-0.5); EOS % 1.5 % (0.0-3.0); HEMATOCRIT 27.3 % (42.0-52.0); HEMOGLOBIN 9.2 g/dl (13.5-17.5); LYMPH # 0.8 10^3/uL (1.5-5.0); LYMPH % 7.6 % (24.0-44.0); MEAN CORPUSCULAR HEMOGLOBIN 33.2 pg (27.0-33.0); MEAN CORPUSCULAR HGB CONC 33.7 g/dl (32.0-36.5); MEAN CORPUSCULAR VOLUME 98.6 fl (80.0-96.0); MONO # 0.7 10^3/uL (0.0-0.8); NEUTROPHILS # 7.8 10^3/uL (1.5-8.5); NEUTROPHILS % 79.4 % (36.0-66.0); PLATELET COUNT, AUTOMATED 376 10^3/uL (150-450); RED BLOOD COUNT 2.77 10^6/uL (4.30-6.10); WHITE BLOOD COUNT 9.9 10^3/uL (4.0-10.0)
[2019-10-20 11:47] LABS: BILIRUBIN, URINE MANUAL NEGATIVE (NEGATIVE); GLUCOSE, URINE (UA) MANUAL 4+(1000 MG/DL) mg/dL (NEGATIVE); KETONE, URINE MANUAL NEGATIVE (NEGATIVE); UROBILINOGEN, URINE MANUAL NORMAL (NORMAL)
[2019-10-20 11:49] LABS: RBC, URINE TNTC /hpf (0-3)
[2019-10-20 11:50] LABS: BACTERIA, URINE SMALL AMOUNT; HYALINE CAST, URINE NONE SEEN /lpf (0-1); SQUAMOUS EPITHELIAL CELL URINE SMALL AMOUNT /hpf (SMALL AMT)
[2019-10-20 11:51] LABS: MUCUS, URINE SMALL AMOUNT (NEGATIVE)
[2019-10-20] MEDS ORDERED: OXYB5TAB10 PO (11:55)
[2019-10-20 12:08] VITALS: BP 137/76
[2019-10-20] MEDS ORDERED: COLA100C5 PO (15:40)
== END 2019-10-20 12:08 | disposition home or self-care (01) ==
LOC: M ED 10:28
DX: Z01.89 Encounter for other specified special examinations (principal); D62 Acute posthemorrhagic anemia; N32.89 Other specified disorders of bladder; Z79.82 Long term (current) use of aspirin; Z79.84 Long term (current) use of oral hypoglycemic drugs; Z79.899 Other long term (current) drug therapy; Z90.79 Acquired absence of other genital organ(s)

== ENCOUNTER → 2019-12-03 | Outpatient (CLI) | payer OTHER ==
[~2019-12-03] MED LIST changes: +COLA100C5 PO; +MEMA10TA19; +OXYB5TAB10 PO; +ROSU40TA4; +SIMB1SUS
[2019-12-03 15:56] LABS: HEMOGLOBIN A1c 6.1 %
== END ==
LOC: M LAB 15:14
PROVIDERS: ATTEND Family Medicine
DX: E11.69 Type 2 diabetes mellitus with other specified complication (principal)

== ENCOUNTER → 2020-05-01 | Outpatient (CLI) | payer OTHER ==
[~2020-05-01] MED LIST changes: -GLYB5TA PO; +GLYB5TAB6 PO; -LISI-542 PO; +LISI-898 PO
--- NOTE | 2020-05-02 05:47 | REP ---
INDICATION: ISOLATED PROTEINURIA COMPARISON: None TECHNIQUE: Real time ponce scale ultrasound examination using curved array transducer. FINDINGS: Kidneys are normal in reniform shape with increased parenchymal echotexture and increased central sinus fat consistent with age-related medical renal disease. No hydronephrosis, nephrolithiasis, cystic or renal mass lesion appreciated. Right kidney measures 8.9 x 5.6 x 5.3 cm. Left kidney measures 8.8 x 4.7 x 5.0 cm. Bladder is normal in appearance and currently measured 135 cc during examination. IMPRESSION: Findings consistent with age-related medical renal disease. No hydronephrosis. <Electronically signed by Darek Biswas > 05/02/20 [id number]
== END ==
LOC: M RAD 14:36
PROVIDERS: ATTEND Internal Medicine
DX: R80.0 Isolated proteinuria (principal)

== ENCOUNTER → 2020-05-30 | Outpatient (REF) | payer OTHER ==
[2020-05-30 18:54] LABS: COMPLEMENT C3 112 MG/DL (90-180); COMPLEMENT C4 22 MG/DL (10-40); FERRITIN 34 NG/ML (26-388); IRON (FE) 91 UG/DL (65-175); PERCENT SATURATION 26.1 % (19.7-50.0); TOTAL IRON BINDING CAPACITY 348 UG/DL (250-450); TOTAL PROTEIN 7.4 GM/DL (6.4-8.2)
[2020-05-30 19:00] LABS: TOTAL PROTEIN,RANDOM URINE 137.7 MG/DL (0.0-12.0)
[2020-06-02 15:25] LABS: ALBUMIN 4.48 GM/DL (3.29-5.55); ALBUMIN % 60.6 % (55.8-66.1); ALPHA-1-GLOBULIN % 3.1 % (2.9-4.9); ALPHA-1-GLOBULINS 0.23 GM/DL (0.17-0.41); ALPHA-2-GLOBULINS 0.88 GM/DL (0.42-0.99); ALPHA-2-GLOBULINS % 11.9 % (7.1-11.8); BETA-1-GLOBULINS 0.45 GM/DL (0.28-0.60); BETA-1-GLOBULINS % 6.1 % (4.7-7.2); BETA-2-GLOBULINS 0.36 GM/DL (0.19-0.55); BETA-2-GLOBULINS % 4.9 % (3.2-6.5); GAMMA GLOBULIN % 13.4 % (11.1-18.8); GAMMA GLOBULINS 0.99 GM/DL (0.65-1.58)
[2020-06-03 10:51] LABS: FOLATE > 24.0 NG/ML; HEPATITIS B SURFACE ANTIBODY NEGATIVE (POSITIVE); VITAMIN B12 LEVEL 420 PG/ML
[2020-06-03 11:01] LABS: HEPATITIS B SURFACE ANTIGEN NEGATIVE (NEGATIVE)
[2020-06-03 11:28] LABS: HEPATITIS C VIRUS ABY INDEX 0.1 INDEX (<0.8)
[2020-06-03 11:29] LABS: HEPATITIS B CORE ANTIBODY IGM NEGATIVE (NEGATIVE)
[2020-06-03 18:07] LABS: ANCA-ATYPICAL <1:20 titer (Neg:<1:20); ANTI DS-DNA AB Negative (Negative); ANTINUCLEAR ANTIBODIES DIRECT Negative (Negative); CYTOPLASMIC NEUTROP AB ANCA-C <1:20 titer (Neg:<1:20); KAPPA/LAMBDA RATIO SERUM 1.79 (0.26-1.65); PERINUCLEAR AB ANCA-P <1:20 titer (Neg:<1:20)
== END ==
LOC: M LAB REF 16:57
PROVIDERS: ATTEND Internal Medicine Nephrology
DX: D64.9 Anemia, unspecified (principal)

== ENCOUNTER 2020-10-06 13:05 | Emergency (ER) | payer OTHER ==
[~2020-10-06] VITALS: Ht 177.8 cm; Wt 75.9 kg
[~2020-10-06 13:05] MED LIST changes: +GABA-283 PO; -GABA-845 PO
[2020-10-06] MEDS ORDERED: TIMO0.5S29 (13:20)
[2020-10-06] MEDS ORDERED: LATA0.0015 (13:20)
[2020-10-06] MEDS ORDERED: DONE10TA90 (13:20)
[2020-10-06] MEDS ORDERED: D31000TA2 (13:20)
[2020-10-06] MEDS ORDERED: NS 1,000 ML IV ONE (14:00)
[2020-10-06] MEDS ORDERED: FAMOTIDINE INJ 20MG/2ML VIAL (S0028 PER 1) IVP ONE (14:00)
[2020-10-06] MEDS ORDERED: methylPREDNISolone 125MG 2ML VIAL IV ONE (14:00)
[2020-10-06 15:30] VITALS: BP 131/71
[2020-10-06] MEDS ORDERED: PRED20TA PO (15:30)
[2020-10-06] MEDS ORDERED: BENA25CA4 PO (15:30)
== END 2020-10-06 15:55 | disposition home or self-care (01) ==
LOC: M ED 13:05
DX: T63.441A Toxic effect of venom of bees, accidental (unintentional), initial encounter (principal); E11.9 Type 2 diabetes mellitus without complications; I11.9 Hypertensive heart disease without heart failure; Z79.82 Long term (current) use of aspirin; Z79.899 Other long term (current) drug therapy
CPT/HCPCS: 96361; 96374; 96375; 99284; J2930

== ENCOUNTER 2020-10-14 11:30 | Emergency (ER) | payer OTHER ==
[~2020-10-14] VITALS: Ht 177.8 cm; Wt 75.0 kg
[~2020-10-14 11:30] MED LIST changes: +BENA25CA4 PO; +D31000TA2; +DONE10TA90; +LATA0.0015; +PRED20TA PO; +TIMO0.5S29
[2020-10-14 13:20] LABS: HEMATOCRIT 40.3 % (42.0-52.0); HEMOGLOBIN 13.5 g/dl (13.5-17.5); MEAN CORPUSCULAR HEMOGLOBIN 33.5 pg (27.0-33.0); MEAN CORPUSCULAR HGB CONC 33.5 g/dl (32.0-36.5); PLATELET COUNT, AUTOMATED 155 10^3/uL (150-450); RED BLOOD COUNT 4.03 10^6/uL (4.30-6.10); WHITE BLOOD COUNT 9.2 10^3/uL (4.0-10.0)
--- NOTE | 2020-10-14 13:30 | REP ---
INDICATION: SOBOE. COMPARISON: Comparison chest x-ray July 02, 2018 TECHNIQUE: Portable chest x-ray: Single view.. FINDINGS: EKG monitoring electrodes are seen. The lungs are well inflated and clear. Pleural angles are sharp. The heart size is normal. Pulmonary vasculature is not increased. No acute bony abnormality is seen. IMPRESSION: No active disease. <Electronically signed by Jovani Ledesma > 10/14/20 [id number]
[2020-10-14 13:46] LABS: BLOOD UREA NITROGEN 35 MG/DL (7-18); CALCIUM LEVEL 9.3 MG/DL (8.8-10.2); CARBON DIOXIDE LEVEL 24 MEQ/L (21-32); CHLORIDE LEVEL 106 MEQ/L (98-107); CK-MB VALUE MASS 1.2 NG/ML (<3.6); CPK CREATINE PHOSPHOKINASE 40 U/L (39-308); CREATININE FOR GFR 1.29 MG/DL (0.70-1.30); GLOMERULAR FILTRATION RATE 58.1 (>42); GLUCOSE, FASTING 224 MG/DL (70-100); POTASSIUM SERUM 4.5 MEQ/L (3.5-5.1); SODIUM LEVEL 138 MEQ/L (136-145); TROPONIN I < 0.02 NG/ML (< 0.10)
[2020-10-14 15:00] VITALS: BP 134/73
--- NOTE | 2020-10-14 15:55 | ECGEPIP ---
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
== END 2020-10-14 15:12 | disposition home or self-care (01) ==
LOC: M ED 11:30
DX: R06.02 Shortness of breath (principal); E11.9 Type 2 diabetes mellitus without complications; I10 Essential (primary) hypertension

== ENCOUNTER → 2020-11-17 | Outpatient (REF) | payer OTHER | LOC: M LAB REF 12:48 | PROVIDERS: ATTEND Internal Medicine Nephrology | DX: N18.31 Chronic kidney disease, stage 3a (principal) ==

== ENCOUNTER → 2020-12-30 | Outpatient (CLI) | payer OTHER ==
[2020-12-30 13:12] LABS: BASO % 0.7 % (0.0-1.0); EOS # 0.2 10^3/uL (0.0-0.5); HEMATOCRIT 39.4 % (42.0-52.0); HEMOGLOBIN 13.1 g/dl (13.5-17.5); LYMPH # 0.8 10^3/uL (1.5-5.0); MEAN CORPUSCULAR HEMOGLOBIN 32.9 pg (27.0-33.0); MEAN CORPUSCULAR HGB CONC 33.2 g/dl (32.0-36.5); MONO # 0.5 10^3/uL (0.0-0.8); MONO % 9.2 % (2.0-8.0); NEUTROPHILS # 3.9 10^3/uL (1.5-8.5); NEUTROPHILS % 70.7 % (36.0-66.0); PLATELET COUNT, AUTOMATED 162 10^3/uL (150-450); RED BLOOD COUNT 3.98 10^6/uL (4.30-6.10); WHITE BLOOD COUNT 5.5 10^3/uL (4.0-10.0)
[2020-12-30 13:37] LABS: ALBUMIN 3.6 GM/DL (3.2-5.2); BILIRUBIN,TOTAL 0.4 MG/DL (0.2-1.0); CALCIUM LEVEL 9.3 MG/DL (8.8-10.2); CHOLESTEROL RISK RATIO 2.585 (<5); CREATININE FOR GFR 1.39 MG/DL (0.70-1.30); GLOMERULAR FILTRATION RATE 53.3 (>42); POTASSIUM SERUM 4.7 MEQ/L (3.5-5.1); TOTAL PROTEIN 6.6 GM/DL (6.4-8.2)
[2020-12-30 14:14] LABS: MAU/CREAT RATIO 428.5 MCG/MG (0.0-30.0)
[2020-12-30 15:21] LABS: HEMOGLOBIN A1c 6.9 %
== END ==
LOC: M WUC 09:06
PROVIDERS: ATTEND Family Medicine
DX: E11.69 Type 2 diabetes mellitus with other specified complication (principal)

== ENCOUNTER → 2021-04-22 | Outpatient (CLI) | payer OTHER ==
[~2021-04-22] MED LIST changes: -D31000TA2; -LISI-898 PO; +LISI5TAB11 PO; +VITA100093
[2021-04-22 19:08] LABS: HEMOGLOBIN A1c 6.9 %
== END ==
LOC: M WUC 11:17
PROVIDERS: ATTEND Family Medicine
DX: E11.69 Type 2 diabetes mellitus with other specified complication (principal)

== ENCOUNTER → 2021-08-10 | Outpatient (CLI) | payer OTHER ==
[2021-08-10 13:08] LABS: APPEARANCE, URINE HAZY (CLEAR); BACTERIA, URINE AUTO NEGATIVE (NEGATIVE); BILIRUBIN, URINE AUTO NEGATIVE (NEGATIVE); BLOOD, URINE BLOOD NEGATIVE (NEGATIVE); COLOR, URINE AMBER (YELLOW); GLUCOSE, URINE (UA) AUTO NEGATIVE (NEGATIVE); KETONE, URINE AUTO TRACE mg/dL (NEGATIVE); LEUKOCYTE ESTERASE, URINE AUTO NEGATIVE (NEGATIVE); MUCUS, URINE SMALL (NEGATIVE); NITRITE, URINE AUTO NEGATIVE (NEGATIVE); PROTEIN, URINE AUTO 2+ mg/dL (NEGATIVE); RBC, URINE AUTO 1 /HPF (0-3); SQUAMOUS EPITHELIAL CELL UR AU 0 /HPF (0-6); UROBILINOGEN, URINE AUTO 0.2 mg/dL (0.0-2.0); WBC, URINE AUTO 6 /HPF (0-3)
[2021-08-10 14:33] LABS: CALCIUM LEVEL 9.8 MG/DL (8.8-10.2); CREATININE FOR GFR 1.59 MG/DL (0.70-1.30); GLOMERULAR FILTRATION RATE 45.5 (>42); POTASSIUM SERUM 4.4 MEQ/L (3.5-5.1)
== END ==
LOC: M WUC 09:05
PROVIDERS: ATTEND Family Medicine
DX: N18.30 Chronic kidney disease, stage 3 unspecified (principal)

== ENCOUNTER → 2021-10-16 | Outpatient (CLI) | payer OTHER ==
[2021-10-16 18:26] LABS: BASO % 0.5 % (0.0-1.0); EOS # 0.3 10^3/uL (0.0-0.5); EOS % 3.9 % (0.0-3.0); HEMATOCRIT 42.4 % (42.0-52.0); HEMOGLOBIN 14.1 g/dl (13.5-17.5); MEAN CORPUSCULAR HGB CONC 33.3 g/dl (32.0-36.5); MEAN CORPUSCULAR VOLUME 99.3 fl (80.0-96.0); MONO # 0.4 10^3/uL (0.0-0.8); MONO % 6.7 % (2.0-8.0); NEUTROPHILS # 4.7 10^3/uL (1.5-8.5); NEUTROPHILS % 73.3 % (36.0-66.0); PLATELET COUNT, AUTOMATED 196 10^3/uL (150-450); RED BLOOD COUNT 4.27 10^6/uL (4.30-6.10); WHITE BLOOD COUNT 6.5 10^3/uL (4.0-10.0)
[2021-10-16 18:42] LABS: HEMOGLOBIN A1c 7.3 %
[2021-10-16 19:11] LABS: ALBUMIN 3.8 GM/DL (3.2-5.2); BILIRUBIN,TOTAL 0.7 MG/DL (0.2-1.0); CALCIUM LEVEL 9.4 MG/DL (8.8-10.2); CHOLESTEROL RISK RATIO 3.05 (<5); CREATININE FOR GFR 1.48 MG/DL (0.70-1.30); GLOMERULAR FILTRATION RATE 49.5 (>42); TOTAL PROTEIN 7.2 GM/DL (6.4-8.2)
[2021-10-16 19:15] LABS: MAU/CREAT RATIO 196.4 MCG/MG (0.0-30.0)
== END ==
LOC: M WUC 10:21
PROVIDERS: ATTEND Family Medicine
DX: E11.69 Type 2 diabetes mellitus with other specified complication (principal)

== ENCOUNTER → 2022-02-22 | Outpatient (REF) | payer OTHER ==
[2022-02-22 18:09] LABS: CREATININE, URINE 59.9 MG/DL
[2022-02-22 18:10] LABS: MAU/CREAT RATIO 78.4 MCG/MG (0.0-30.0)
== END ==
LOC: M LAB REF 17:01
PROVIDERS: ATTEND Internal Medicine Nephrology
DX: E11.22 Type 2 diabetes mellitus with diabetic chronic kidney disease (principal)

== ENCOUNTER → 2022-03-22 | Outpatient (CLI) | payer OTHER ==
[2022-03-22 13:40] LABS: HEMOGLOBIN A1c 7.7 % (4.0-6.0)
[2022-03-22 13:43] LABS: ALBUMIN 4.5 G/DL (3.2-5.2); ALKALINE PHOSPHATASE 121 U/L (46-116); ALT/SGPT 36 U/L (7.0-40); AST/SGOT 41 U/L (<34); BILIRUBIN,TOTAL 0.8 MG/DL (0.3-1.2); BLOOD UREA NITROGEN 29 MG/DL (9-23); CALCIUM LEVEL 9.9 MG/DL (8.3-10.6); CARBON DIOXIDE LEVEL 27 MMOL/L (20-31); CHLORIDE LEVEL 106 MMOL/L (98-107); CHOLESTEROL LEVEL 137 MG/DL (<200); CREATININE FOR GFR 1.47 MG/DL (0.70-1.30); FOLATE > 24.00 NG/ML (>5.4); GLOMERULAR FILTRATION RATE 49.9 (>42); GLUCOSE, FASTING 147 MG/DL (74-106); HDL CHOLESTEROL 50.7 MG/DL (>40); LDL CHOLESTEROL 69.9 MG/DL (<100); MAGNESIUM LEVEL 2.1 MG/DL (1.8-2.4); NON-HDL-C 86 MG/DL; POTASSIUM SERUM 4.8 MMOL/L (3.5-5.1); SODIUM LEVEL 139 MMOL/L (136-145); TOTAL PROTEIN 7.5 G/DL (5.7-8.2); TRIGLYCERIDES LEVEL 82 MG/DL (<150)
[2022-03-22 13:44] LABS: VITAMIN B12 LEVEL 405 PG/ML (211-911)
== END ==
LOC: M WUC 10:33
PROVIDERS: ATTEND Registered Nurse
DX: E11.69 Type 2 diabetes mellitus with other specified complication (principal); E78.2 Mixed hyperlipidemia; R20.2 Paresthesia of skin

== ENCOUNTER → 2022-06-21 | Outpatient (CLI) | payer OTHER ==
[~2022-06-21] MED LIST changes: +TIMO0.5S20; -TIMO0.5S29
[2022-06-21 13:24] LABS: HEMOGLOBIN A1c 8.5 % (4.0-6.0)
[2022-06-21 13:41] LABS: ALBUMIN 3.9 G/DL (3.2-5.2); BILIRUBIN,TOTAL 0.6 MG/DL (0.3-1.2); CALCIUM LEVEL 9.2 MG/DL (8.3-10.6); CREATININE FOR GFR 1.65 MG/DL (0.70-1.30); GLOMERULAR FILTRATION RATE 43.5 (>42); POTASSIUM SERUM 5.4 MMOL/L (3.5-5.1); TOTAL PROTEIN 6.5 G/DL (5.7-8.2)
== END ==
LOC: M WUC 09:15
PROVIDERS: ATTEND Registered Nurse
DX: E11.69 Type 2 diabetes mellitus with other specified complication (principal)

== ENCOUNTER → 2022-09-27 | Outpatient (CLI) | payer OTHER ==
[~2022-09-27] MED LIST changes: -GABA-283 PO; +GABA-284 PO
[2022-09-27 12:35] LABS: HEMOGLOBIN A1c 7.9 % (4.0-6.0)
[2022-09-27 12:54] LABS: ALBUMIN 3.9 G/DL (3.2-5.2); BILIRUBIN,TOTAL 0.8 MG/DL (0.3-1.2); CALCIUM LEVEL 9.2 MG/DL (8.3-10.6); CHOLESTEROL RISK RATIO 4.59 (<5); CREATININE FOR GFR 1.37 MG/DL (0.70-1.30); GLOMERULAR FILTRATION RATE 53.9 (>42); HDL CHOLESTEROL 45.9 MG/DL (>40); LDL CHOLESTEROL 140.7 MG/DL (<100); NON-HDL-C 165.1 MG/DL; POTASSIUM SERUM 4.4 MMOL/L (3.5-5.1); TOTAL PROTEIN 7.1 G/DL (5.7-8.2)
== END ==
LOC: M WUC 09:53
PROVIDERS: ATTEND Registered Nurse
DX: E11.69 Type 2 diabetes mellitus with other specified complication (principal); E78.2 Mixed hyperlipidemia

== ENCOUNTER → 2023-02-09 | Outpatient (CLI) | payer MEDICARE, OTHER ==
[~2023-02-09] MED LIST changes: -OXYB5TAB10 PO; +OXYB5TAB11 PO
[2023-02-09 10:34] LABS: BASO % 0.7 % (0.0-1.0); EOS # 0.4 10^3/uL (0.0-0.5); EOS % 6.2 % (0.0-3.0); HEMATOCRIT 42.6 % (42.0-52.0); HEMOGLOBIN 14.4 g/dl (13.5-17.5); LYMPH # 0.9 10^3/uL (1.5-5.0); LYMPH % 16.2 % (24.0-44.0); MEAN CORPUSCULAR HEMOGLOBIN 33.1 pg (27.0-33.0); MEAN CORPUSCULAR HGB CONC 33.8 g/dl (32.0-36.5); MEAN CORPUSCULAR VOLUME 97.9 fl (80.0-96.0); MONO # 0.5 10^3/uL (0.0-0.8); MONO % 8.4 % (2.0-8.0); NEUTROPHILS # 3.8 10^3/uL (1.5-8.5); PLATELET COUNT, AUTOMATED 179 10^3/uL (150-450); RED BLOOD COUNT 4.35 10^6/uL (4.30-6.10); WHITE BLOOD COUNT 5.6 10^3/uL (4.0-10.0)
[2023-02-09 10:47] LABS: HEMOGLOBIN A1c 10.4 % (4.0-6.0)
[2023-02-09 11:01] LABS: BILIRUBIN,TOTAL 0.8 MG/DL (0.3-1.2); CALCIUM LEVEL 9.4 MG/DL (8.3-10.6); CHOLESTEROL RISK RATIO 4.21 (<5); CREATININE FOR GFR 1.45 MG/DL (0.70-1.30); GLOMERULAR FILTRATION RATE 50.5 (>42); HDL CHOLESTEROL 45.1 MG/DL (>40); LDL CHOLESTEROL 119.1 MG/DL (<100); NON-HDL-C 144.9 MG/DL; POTASSIUM SERUM 4.6 MMOL/L (3.5-5.1); TOTAL PROTEIN 6.8 G/DL (5.7-8.2)
== END ==
LOC: M WUC 08:33
PROVIDERS: ATTEND Registered Nurse
DX: E11.69 Type 2 diabetes mellitus with other specified complication (principal); I10 Essential (primary) hypertension; E78.2 Mixed hyperlipidemia

== ENCOUNTER → 2023-05-16 | Outpatient (CLI) | payer OTHER ==
[~2023-05-16] MED LIST changes: -OXYB5TAB11 PO; +OXYB5TAB14 PO
[2023-05-16 12:16] LABS: HEMOGLOBIN A1c 8.4 % (4.0-6.0)
[2023-05-16 12:29] LABS: ALBUMIN 4.2 G/DL (3.2-5.2); BILIRUBIN,TOTAL 0.7 MG/DL (0.3-1.2); CALCIUM LEVEL 9.3 MG/DL (8.3-10.6); CREATININE FOR GFR 1.51 MG/DL (0.70-1.30); GLOMERULAR FILTRATION RATE 48.1 (>42); POTASSIUM SERUM 4.7 MMOL/L (3.5-5.1); TOTAL PROTEIN 6.7 G/DL (5.7-8.2)
== END ==
LOC: M WUC 08:15
PROVIDERS: ATTEND Registered Nurse
DX: E11.69 Type 2 diabetes mellitus with other specified complication (principal)

== ENCOUNTER → 2023-08-23 | Outpatient (REF) | payer OTHER ==
[~2023-08-23] MED LIST changes: +MEMA10TA; -MEMA10TA19; -ROSU40TA4; +ROSU40TA63
[2023-08-23 19:39] LABS: ALBUMIN 4.2 G/DL (3.2-5.2); BILIRUBIN,TOTAL 0.9 MG/DL (0.3-1.2); CALCIUM LEVEL 9.4 MG/DL (8.3-10.6); CREATININE FOR GFR 1.73 MG/DL (0.70-1.30); GLOMERULAR FILTRATION RATE 41.1 (>42); HEMOGLOBIN A1c 7.5 % (4.0-6.0); POTASSIUM SERUM 4.9 MMOL/L (3.5-5.1); TOTAL PROTEIN 6.7 G/DL (5.7-8.2)
== END ==
LOC: M LABWUC 16:22
PROVIDERS: ATTEND Registered Nurse
DX: E11.69 Type 2 diabetes mellitus with other specified complication (principal)

== ENCOUNTER 2024-05-12 15:12 | Inpatient (IN) | payer OTHER, MEDICARE ==
[~2024-05-12] VITALS: Ht 172.7 cm; Wt 74.2 kg
[~2024-05-12 15:12] MED LIST changes: -DONE10TA90; +DONE10TA90 PO; -MEMA10TA; +MEMA10TA PO; -ROSU40TA63; +ROSU40TA81 PO; -TIMO0.5S20; +TIMO0.5S20 OU
[2024-05-12 15:43] LABS: BASO % 0.5 % (0.0-1.0); EOS # 0.1 10^3/uL (0.0-0.5); EOS % 1.7 % (0.0-3.0); HEMATOCRIT 38.6 % (42.0-52.0); HEMOGLOBIN 13.3 g/dl (13.5-17.5); LYMPH # 0.7 10^3/uL (1.5-5.0); LYMPH % 10.7 % (24.0-44.0); MEAN CORPUSCULAR HEMOGLOBIN 33.8 pg (27.0-33.0); MEAN CORPUSCULAR HGB CONC 34.5 g/dl (32.0-36.5); MONO # 0.5 10^3/uL (0.0-0.8); MONO % 7.5 % (2.0-8.0); NEUTROPHILS # 5.1 10^3/uL (1.5-8.5); NEUTROPHILS % 79.3 % (36.0-66.0); PLATELET COUNT, AUTOMATED 127 10^3/uL (150-450); RED BLOOD COUNT 3.94 10^6/uL (4.30-6.10); WHITE BLOOD COUNT 6.4 10^3/uL (4.0-10.0)
[2024-05-12 15:56] LABS: INR 1.04; PARTIAL THROMBOPLASTIN TIME 32.6 SECONDS (24.8-34.2); PROTHROMBIN TIME 13.9 SECONDS (12.5-14.5)
[2024-05-12 16:12] LABS: CALCIUM LEVEL 8.9 MG/DL (8.3-10.6); CREATININE FOR GFR 1.49 MG/DL (0.70-1.30); GLOMERULAR FILTRATION RATE 48.7 (>42); MAGNESIUM LEVEL 2.3 MG/DL (1.8-2.4); POTASSIUM SERUM 4.5 MMOL/L (3.5-5.1)
[2024-05-12 16:14] LABS: CK-MB VALUE MASS 1.2 NG/ML (<3.6); MB/CK RELATIVE INDEX 1.36 (< OR =4)
[2024-05-12 16:18] LABS: FREE T4 1.07 NG/DL (0.89-1.76); THYROID STIMULATING HORMONE 1.447 uIU/ML (0.55-4.78)
[2024-05-12 17:33] LABS: CK-MB VALUE MASS 1.3 NG/ML (<3.6)
[2024-05-12 17:39] LABS: MB/CK RELATIVE INDEX 1.51 (< OR =4)
[2024-05-12] MEDS: NS 500 ML IV ONE (18:51)
[2024-05-12] MEDS: INSULIN LISPRO (NovoLOG) PER UNIT SC SCH (21:00)
[2024-05-12] MEDS ORDERED: GLUCOSE 4 GM CHEW PO PRN (21:05)
[2024-05-12] MEDS ORDERED: MAALOX 30 ML SUSP *UDC PO PRN (21:05)
[2024-05-12] MEDS ORDERED: GLUCAGON INJ 1MG VIAL SC PRN (21:05)
[2024-05-12] MEDS ORDERED: ACETAMINOPHEN 325 MG TAB PO PRN (21:05)
[2024-05-12] MEDS ORDERED: DEXTROSE 50% 50ML SYRINGE IV PRN (21:05)
[2024-05-12] MEDS ORDERED: MOM 30ML SUSPENSION UDC PO PRN (21:05)
[2024-05-12] MEDS ORDERED: XALA0.007 OU (23:25)
[2024-05-12] MEDS ORDERED: OPTI0.5D2 OU (23:31)
[2024-05-12] MEDS ORDERED: TRAZ-252 PO (23:31)
[2024-05-12] MEDS ORDERED: TRUL10IN SC (23:31)
[2024-05-12] MEDS ORDERED: ELIQ5TAB PO (23:31)
[2024-05-12] MEDS ORDERED: JARD1TAB3 PO (23:31)
[2024-05-12] MEDS ORDERED: FLUO-290 PO (23:31)
[2024-05-12] MEDS ORDERED: LOSA25TA13 PO (23:31)
[2024-05-12] MEDS ORDERED: MULT-90 PO (23:31)
[2024-05-12] MEDS ORDERED: HOME MED LIST COMPLETE! XX SCH (23:40)
[2024-05-13] MEDS: FLUTICASONE PROP 0.05% NASAL SPRAY 16 GM (FLONASE) NARES SCH
[2024-05-13] MEDS: NS (Normal Saline) 0.9% 1,000 ML IV SCH (00:50)
[2024-05-13 01:42] LABS: PERCENT SATURATION 27.6 % (19.7-50.0)
[2024-05-13 02:40] LABS: FERRITIN 118.4 NG/ML (10.5-307.3)
[2024-05-13 02:41] LABS: FOLATE 13.68 NG/ML (>5.4)
[2024-05-13 06:46] LABS: HEMATOCRIT 35.8 % (42.0-52.0); HEMOGLOBIN 12.4 g/dl (13.5-17.5); MEAN CORPUSCULAR HEMOGLOBIN 33.6 pg (27.0-33.0); MEAN CORPUSCULAR HGB CONC 34.6 g/dl (32.0-36.5); PLATELET COUNT, AUTOMATED 123 10^3/uL (150-450); RED BLOOD COUNT 3.69 10^6/uL (4.30-6.10); WHITE BLOOD COUNT 5.2 10^3/uL (4.0-10.0)
[2024-05-13 07:21] LABS: ALBUMIN 3.1 G/DL (3.2-5.2); BILIRUBIN,TOTAL 0.6 MG/DL (0.3-1.2); CALCIUM LEVEL 8.6 MG/DL (8.3-10.6); CREATININE FOR GFR 1.36 MG/DL (0.70-1.30); GLOMERULAR FILTRATION RATE 54.1 (>42); POTASSIUM SERUM 4.7 MMOL/L (3.5-5.1); TOTAL PROTEIN 5.8 G/DL (5.7-8.2)
[2024-05-13] MEDS: ROSUVASTATIN 10 MG TAB (CRESTOR) PO SCH (08:51)
[2024-05-13] MEDS: APIXABAN 5 MG TAB (ELIQUIS) PO SCH (08:51)
[2024-05-13] MEDS: INSULIN LISPRO (NovoLOG) PER UNIT SC SCH (08:52)
[2024-05-13] MEDS: DOCUSATE SODIUM 100MG CAPSULE PO SCH (08:54)
[2024-05-13 18:00] VITALS: TEMP 98.3
[2024-05-13] MEDS: LATANOPROST 0.005% OPHTH SOLN 2.5 ML OU SCH (21:00)
[2024-05-14 07:13] LABS: CALCIUM LEVEL 8.9 MG/DL (8.3-10.6); CREATININE FOR GFR 1.34 MG/DL (0.70-1.30); POTASSIUM SERUM 4.5 MMOL/L (3.5-5.1)
[2024-05-14] MEDS ORDERED: LOSA25TA13 PO (09:52)
[2024-05-14 10:48] VITALS: BP 128/70; O2SAT 97
== END 2024-05-14 10:45 | disposition home or self-care (01) | DRG 312 ==
LOC: M ED 15:12 → EDBD 15:12 → M ED INP 20:36
PROVIDERS: ADMIT Family Medicine; ATTEND Student in an Organized Health Care Education/Training Program
DX: I95.1 Orthostatic hypotension (principal); F03.90 Unspecified dementia, unspecified severity, without behavioral disturbance, psychotic disturbance, mood disturbance, and anxiety; E78.5 Hyperlipidemia, unspecified; E11.9 Type 2 diabetes mellitus without complications; G47.33 Obstructive sleep apnea (adult) (pediatric); Z91.148 Patient's other noncompliance with medication regimen for other reason; Z79.01 Long term (current) use of anticoagulants; Z86.718 Personal history of other venous thrombosis and embolism; Z85.828 Personal history of other malignant neoplasm of skin; Z91.199 Patient's noncompliance with other medical treatment and regimen due to unspecified reason

== ENCOUNTER 2025-02-08 17:53 | Emergency (ER) | payer MEDICARE, OTHER ==
[~2025-02-08] VITALS: Ht 177.8 cm; Wt 72.9 kg
[~2025-02-08 17:53] MED LIST changes: +ELIQ5TAB PO; -FLOM0.4C39 PO; +FLUO-290 PO; +JARD1TAB3 PO; +LOSA25TA13 PO; +MULT-90 PO; +OPTI0.5D2 OU; +TAMS-18 PO; +TRAZ-252 PO; +TRUL10IN SC; +XALA0.007 OU
[2025-02-08 18:42] LABS: KETONE, URINE AUTO RFX NEGATIVE (NEGATIVE); LEUKOCYTE ESTERASE UR AUTO RFX NEGATIVE (NEGATIVE); NITRITE, URINE AUTO RFX NEGATIVE (NEGATIVE); RBC, URINE AUTO RFX 0 /HPF (0-3); SQUAM EPITHELIAL CELL UR AURFX 0 /HPF (0-6); WBC, URINE AUTO RFX 1 /HPF (0-3)
[2025-02-08 18:52] LABS: VENOUS BASE EXCESS -5.6 (-2.0-2.0); VENOUS HCO3 20.4 MMOL/L (23.0-27.0); VENOUS O2 SATURATION 70.2 % (60.0-80.0); VENOUS PARTIAL PRESSURE CO2 42.1 mmHg (38.0-50.0); VENOUS PARTIAL PRESSURE O2 37.9 mmHg (30.0-50.0); VENOUS PH 7.304 UNITS (7.330-7.430); VENOUS STANDARD HCO3 19.3 MMOL/L; VENOUS TOTAL CO2 21.7 MMOL/L (24.0-28.0)
[2025-02-08 18:57] LABS: BASO # 0.0 10^3/uL (0.0-0.2); BASO % 0.5 % (0.0-1.0); EOS # 0.1 10^3/uL (0.0-0.5); EOS % 2.3 % (0.0-3.0); LYMPH # 0.7 10^3/uL (1.5-5.0); LYMPH % 11.9 % (24.0-44.0); MONO # 0.3 10^3/uL (0.0-0.8); MONO % 5.8 % (2.0-8.0); NEUTROPHILS # 4.4 10^3/uL (1.5-8.5); NEUTROPHILS % 79.1 % (36.0-66.0); PLATELET COUNT, AUTOMATED 129 10^3/uL (150-450)
[2025-02-08 19:27] LABS: ACETONE/KETONE 0.15 MMOL/L (0.02-0.27); ALT/SGPT 34.0 U/L (7.0-40); AST/SGOT 25.0 U/L (<34)
[2025-02-08 19:35] LABS: OSMOLALITY SERUM 312.0 MOSM/KG (280-301)
[2025-02-08] MEDS: HumuLIN R (REGULAR) INSULIN (NovoLIN R) **100 U/ML** PER UNIT IV ONE (20:26)
[2025-02-08 21:45] VITALS: BP 125/78; TEMP 98.2; O2SAT 98
== END 2025-02-08 21:55 | disposition home or self-care (01) ==
LOC: M ED 17:53
DX: E11.65 Type 2 diabetes mellitus with hyperglycemia (principal); I10 Essential (primary) hypertension; E78.5 Hyperlipidemia, unspecified; Z79.899 Other long term (current) drug therapy; Z79.01 Long term (current) use of anticoagulants; Z79.84 Long term (current) use of oral hypoglycemic drugs
CPT/HCPCS: 80047; 80076; 81001; 82010; 82803; 83036; 83605; 83690; 83930; 85025; 93005; 93041; 94760; 96374; 99285; J1815